=== PATIENT | female | born 1990 | race Caucasian/White ===

== ENCOUNTER 2017-09-25 22:16 | Inpatient (IN) | payer OTHER ==
[2017-09-25 22:44] VITALS: BMI 34.3
[2017-09-25] MEDS ORDERED: Misoprostol 200 MCG TAB PR PRN (23:15)
[2017-09-25] MEDS ORDERED: Methylergonovine 0.2 MG/ML VIAL IM PRN (23:15)
[2017-09-25] MEDS ORDERED: Ibuprofen 800 MG TAB PO PRN (23:15)
[2017-09-25] MEDS ORDERED: Lidocaine 1% (PF) 30 ML VIAL SC PRN (23:15)
[2017-09-25] MEDS ORDERED: Lactated Ringer's 1,000 ML IV SCH (23:15)
[2017-09-25] MEDS ORDERED: Diphenoxylate HCl/Atropine Tablet PO PRN ×2 (23:15)
[2017-09-25] MEDS ORDERED: HYDROcodone/Acetaminophen 5/325 mg Tablet PO PRN ×2 (23:15)
[2017-09-25] MEDS ORDERED: LR / Pitocin 40 units/1000 ml 1,000 ML IV PRN (23:15)
[2017-09-25] MEDS ORDERED: Acetaminophen 500 MG TAB PO PRN (23:15)
[2017-09-25] MEDS ORDERED: Promethazine HCl 25 MG/ML VIAL IM PRN (23:15)
[2017-09-25] MEDS ORDERED: Carboprost 250 MCG/ML AMP IM PRN (23:15)
[2017-09-25] MEDS ORDERED: Ondansetron HCl/PF 4 MG/2 ML Vial IVP PRN (23:15)
[2017-09-25] MEDS ORDERED: Lidocaine 1% (PF) 30 ML VIAL ONE (23:26)
[2017-09-25 23:32] LABS: Hematocrit 36.1 % (36.0-47.0); Mean Platelet Volume 9.5 fL (7.4-10.4); Red Blood Cell (RBC) Count 3.83 mill/uL (4.20-5.40); White Blood Cell (WBC) Count 12.4 thou/uL (4.8-10.8)
--- NOTE | 2017-09-26 01:59 | PDOC.LDHP ---
Labor and Delivery H&P Chief complaint: contractions, loss of fluid HPI: 27yo at 40w0d c/o painful ctx and LOF since 1430. Good FM, +vag spotting. Current gestational age (weeks): 40 Due date: 09/26/17 Dating criteria: last menstrual period Grav: 1 Para: 0 Current complications: none Abnormal US findings: No Current medications: pre-spring vitamins Previous surgical history: none Allergies/Adverse Reactions: Allergies Allergy/AdvReac Type Severity Reaction Status Date / Time No Known Allergies Allergy Verified 09/25/17 22:38 Social history: none - Physical Exam Vital signs reviewed and normal: yes General: breathing through contractions Heart: RRR Lungs: CTAB Abdomen: gravid Extremeties: no edema FHT: category 2, early decelerations, variable decelerations [place] contractions every: q3min - Vaginal Exam cm dilated: 9 Effacement: 100% Station: 0 (arom clear) - OB Labs Blood type: A RH: negative Antibody Screen: negative HIV: negative RPR: negative HEPSAg: negative 1 hour GCT: negative GBS: negative Rubella: immune - Assessment L&D Assessment: term patient in labor - Plan Plan: admit to L&D, labor augmentation if indicated, informed consent obtained, anesthesia consult for pain management
--- NOTE | 2017-09-26 02:01 | PDOC.OPDEL ---
OB Operative/Delivery Note Delivery Dr/Surgeon: Ross Assist: n/a Pre-Delivery Diagnosis: active labor Procedure/Post Delivery Dx: operative vaginal delivery (VE) Weeks gestation: 40 Anesthesia: local - Findings A Sex: male Weight: 8 lb 6 oz - 1 min: 8 - 5 min: 9 - Additional Findings/Plan Placenta delivered: spontaneous Repaired Obstetrical Laceration: 2nd degree (repaired with 2-0 vicryl in usual fashion, excellent hemostasis) Estimated blood loss: 400 Compilations/Other Findings: Pt pushed to C/C/+3, baby was having variables to 70s with contractions however upon baby did not recover with terminal bradycardia to 80s and minimal variability. Outlet VE performed with baby in JACLYN position, flexion point identified, vacuum placed 1cm anterior to posterior fontanelle. Successful VE with 4 pulls and total application time 2min. No popoffs. Cord gas sent. Post delivery plan: routine recovery
[2017-09-26] MEDS ORDERED: Milk Of Magnesia 30 ML UDCUP PO PRN (04:21)
[2017-09-26] MEDS ORDERED: Benzocaine/Menthol 20-0.5% 60 ML CAN TOP PRN (04:21)
[2017-09-26] MEDS ORDERED: Bisacodyl 10 MG SUPP PR PRN (04:21)
[2017-09-26] MEDS ORDERED: Preparation H Ointment 28 GM TUBE PR PRN (04:21)
[2017-09-26] MEDS ORDERED: Ondansetron HCl/PF 4 MG/2 ML Vial IVP PRN (04:21)
[2017-09-26] MEDS ORDERED: Lanolin Ointment 7 GM TUBE TOP PRN (04:21)
[2017-09-26] MEDS ORDERED: LR / Pitocin 40 units/1000 ml 1,000 ML IV SCH (04:21)
[2017-09-26] MEDS ORDERED: diphenhydrAMINE 25 MG CAP PO PRN (04:21)
[2017-09-26] MEDS ORDERED: HYDROcodone/Acetaminophen 5/325 mg Tablet PO PRN ×2 (04:21)
[2017-09-26] MEDS: Ibuprofen 800 MG TAB PO SCH ×3 (04:49→20:15)
[2017-09-26] MEDS: Prenatal Vitamin 1 TAB PO SCH (08:16)
[2017-09-26] MEDS: Docusate Calcium (SURFAK) 240 MG CAP PO SCH ×2 (08:16→20:16)
[2017-09-26] MEDS: Ferrous Sulfate 325 MG TAB PO SCH ×2 (08:18→17:00)
[2017-09-26] MEDS ORDERED: Adacel (T-DAP) 0.5 ML VIAL IM ONE (09:00)
[2017-09-27] MEDS: Ibuprofen 800 MG TAB PO SCH ×2 (06:18→14:09)
[2017-09-27] MEDS: Docusate Calcium (SURFAK) 240 MG CAP PO SCH (09:11)
[2017-09-27] MEDS: Ferrous Sulfate 325 MG TAB PO SCH (09:11)
[2017-09-27] MEDS: Prenatal Vitamin 1 TAB PO SCH (09:11)
[2017-09-27 10:21] VITALS: BP 126/78; TEMP 98.2
--- NOTE | 2017-09-27 12:54 | PDOC.PP ---
Post Progress Note Post Day #: 1 PO intake tolerated: yes Flatus: yes Ambulation: yes Vital Signs (12 hours) Temp Pulse Resp BP 09/27/17 08:40 98.2 F 69 18 126/78 09/27/17 05:00 98.4 F 66 18 104/61 09/27/17 04:00 98.8 F 80 18 Weight Weight 170 lb - Physical Examination General: NAD Cardiovascular: RRR Respiratory: non-labored breathing Abdominal: no distention, appropriately TTP Fundus firm & at: umb Extremities: negative homans (B) Skin: no rash Psychiatric: normal affect Result Diagrams: 09/25/17 23:20 Additional Labs: Post Labs Blood Type A NEGATIVE 09/25/17 23:00 Hep Bs Antigen Non-Reactive S/CO (NonReactive) 09/25/17 23:20 (1) Term delivered Code(s): O80 - ENCOUNTER FOR FULL-TERM UNCOMPLICATED DELIVERY Status: Acute - Assessment/Plan VSSAF Doing well no issues Rh neg s/p rhogam, RImvlad OR home FU 6wk
== END 2017-09-27 16:35 | disposition home or self-care (01) | DRG 775 ==
LOC: L&D/OP 22:16 → L&D 23:01 → 3SW 09-26 04:15
PROVIDERS: ADMIT Student in an Organized Health Care Education/Training Program; ATTEND Student in an Organized Health Care Education/Training Program
PROC: 10D07Z6 Extraction of Products of Conception, Vacuum, Via Natural or Artificial Opening (ICD-10-PCS; principal; 2017-09-26)
PROC: 3E0334Z Introduction of Serum, Toxoid and Vaccine into Peripheral Vein, Percutaneous Approach (ICD-10-PCS; 2017-09-26)
DX: O76 Abnormality in fetal heart rate and rhythm complicating labor and delivery (principal); O26.893 Other specified pregnancy related conditions, third trimester; O70.1 Second degree perineal laceration during delivery; Z67.11 Type A blood, Rh negative; Z37.0 Single live birth; Z3A.40 40 weeks gestation of pregnancy
CPT/HCPCS: 36415; 85027; 85461; 86780; 87340; 90384; 96372; J2001

== ENCOUNTER 2019-09-10 16:26 | Day surgery (SDC) | payer OTHER ==
[2019-09-10 17:01] VITALS: BMI 35.3
[2019-09-10] MEDS ORDERED: hydrALAZINE 20 MG/ML VIAL SLOW IVP PRN (17:36)
--- NOTE | 2019-09-10 17:38 | PDOC.LDHP ---
Labor and Delivery H&P Chief complaint: other (States High BP at home) HPI: Patient of Dr Hawkins I have seen her in triage A BPs here 123/67 and 115/53 (reports 150/90 at home) NST reactive I have Dictated H&P Current gestational age (weeks): 39 (4) Due date: 09/16/19 Grav: 2 Para: 1 Current complications: none Abnormal US findings: No Current medications: pre- vitamins Allergies/Adverse Reactions: Allergies Allergy/AdvReac Type Severity Reaction Status Date / Time No Known Allergies Allergy Verified 09/25/17 22:38 - Physical Exam Vital signs reviewed and normal: yes General: NAD, resting Abdomen: gravid FHT: category 1 - Assessment Reactive NST at 39 weeks 3 days; BP OBS - Plan Plan: observation in L&D (Labs ordered; NST reactive; CX pending...H&P DICTATED)
--- NOTE | 2019-09-10 17:49 | HP ---
LOCATION: Triage. TIME OF EVALUATION: 1729. The patient of Dr. Hawkins. CHIEF COMPLAINT: This is the patient with a chief complaint of "high blood pressure at home." HISTORY OF PRESENT ILLNESS: This is a 29-year-old, G2, P1, at 39 weeks and 3 days with an EDC of September 16, who arrives, who stated she took her blood pressure at home and her blood pressure is 150/90. She denies headache or nausea or visual changes. She denies vaginal bleeding. She denies contractions or leakage of fluid. She has good movement. She denies any complications. REVIEW OF SYSTEMS: Complete review of systems was checked and is otherwise negative unless specified in the HPI. PAST MEDICAL HISTORY: Negative. OB HISTORY: Noncontributory. She is G2, P1. NO CS HX ALLERGIES: NONE. PAST SURGICAL HISTORY: None. PHYSICAL EXAMINATION: VITAL SIGNS: Her blood pressure is 123/67 and repeated was 115/53. Clinically , she is in no acute distress. ABDOMEN: Soft and nontender. Pelvic exam is pending (nurse to perform now). On external monitor, heart tones are in the 130s to 140s with reactivity noted. The nonstress test meets reactive criteria. There is only one contraction over 20 minutes. ASSESSMENT: This is a G2, P1, at 39 weeks and 3 days with an EDC of September 16 with a blood pressure at home self-reported as elevated. Here, her blood pressures are normal. PLAN: 1. I will check a CMP and a CBC. 2. Serial blood pressures for now. 3. If her labs are normal and blood pressures remain normal over the next 1 to 2 hours, I will release her home and have her follow up with Dr. Hawkins tomorrow morning. 4. NST ADDENDUM: Cervix is 2/50/-1 per RN exam and YOHANA Job ID: [id number] [facility]
[2019-09-10 18:43] LABS: #Basophils 0.1 thou/uL (0.0-0.2); #Eosinphils 0.1 thou/uL (0.0-0.7); #Lymphocytes 1.8 thou/uL (1.20-3.40); #Monocytes 0.8 thou/uL (0.11-0.59); %Basophils 1.2 % (0.0-1.0); %Eosinophils 1.2 % (0.0-10.0); %Lymphocytes 22.6 % (21.0-51.0); %Monocytes 10.2 % (0.0-10.0); %Neutrophils 64.8 % (42.0-75.0); Hemoglobin 12.3 g/dL (12.0-16.0); Mean Corpuscular HGB CONC 34.5 g/dL (32.0-36.0); Mean Corpuscular Hemoglobin 31.6 pg (27.0-31.0); Mean Corpuscular Volume 91.4 fL (78.0-98.0); Mean Platelet Volume 8.4 fL (7.4-10.4); Platelet Count 197 thou/uL (130-400); RBC Distribution Width 11.7 % (11.5-14.5); White Blood Cell (WBC) Count 7.8 thou/uL (4.8-10.8)
[2019-09-10 19:12] LABS: ALT (SGPT) 25 U/L (8-55); AST (SGOT) 24 U/L (5-34); Albumin 3.4 g/dL (3.5-5.0); Alkaline Phosphatase 192 U/L (40-110); Anion Gap 13 mmol/L (10-20); BUN (Urea Nitrogen) 6 mg/dL (7.0-18.7); Bilirubin, Total 0.2 mg/dL (0.2-1.2); Calc. Creatinine Clearance 157 mL/min (70-130); Calcium 8.9 mg/dL (7.8-10.44); Carbon Dioxide 23 mmol/L (22-29); Chloride 103 mmol/L (98-107); Estimated GFR-MDRD Greater than 90; Globulin 3.1 g/dL (2.4-3.5); Glucose 75 mg/dL (70-105); Potassium 3.3 mmol/L (3.5-5.1); Protein, Total 6.5 g/dL (6.0-8.3); Sodium 136 mmol/L (136-145)
--- NOTE | 2019-09-10 19:23 | PDOC.EVN ---
Event Note - Event Note Event Note: Lab check: Labs ok We will recheck BP now and if normal ok to check in AM
== END 2019-09-10 19:30 | disposition home or self-care (01) ==
LOC: L&D/OP 16:26
PROVIDERS: ATTEND Student in an Organized Health Care Education/Training Program
DX: O99.89 Other specified diseases and conditions complicating pregnancy, childbirth and the puerperium (principal); R03.0 Elevated blood-pressure reading, without diagnosis of hypertension; Z3A.39 39 weeks gestation of pregnancy
CPT/HCPCS: 36415; 80053; 85025; 99283

== ENCOUNTER 2019-09-19 04:10 | Inpatient (IN) | payer OTHER ==
[2019-09-19 04:43] VITALS: BMI 35.5
[2019-09-19] MEDS ORDERED: Lidocaine 1% (PF) 30 ML VIAL SC PRN (04:53)
[2019-09-19] MEDS ORDERED: HYDROcodone/Acetaminophen 5/325 mg Tablet PO PRN ×4 (04:53→08:45)
[2019-09-19] MEDS ORDERED: Ibuprofen 800 MG TAB PO PRN (04:53)
[2019-09-19] MEDS ORDERED: Ondansetron PF 4 MG/2 ML Vial IVP PRN ×2 (04:53→08:45)
[2019-09-19] MEDS ORDERED: NS / Oxytocin 40 units/1000ml 1,000 ML IV PRN (04:53)
[2019-09-19] MEDS ORDERED: hydrALAZINE 20 MG/ML VIAL SLOW IVP PRN ×2 (04:53→08:45)
[2019-09-19] MEDS ORDERED: Butorphanol Tartrate 1 MG/ML VIAL SLOW IVP PRN (04:53)
[2019-09-19] MEDS ORDERED: Lactated Ringer's 1,000 ML IV SCH ×2 (05:00)
[2019-09-19 05:57] LABS: Hemoglobin 12.7 g/dL (12.0-16.0); Mean Corpuscular Volume 92.1 fL (78.0-98.0)
[2019-09-19 06:10] LABS: Mean Corpuscular HGB CONC 34.4 g/dL (32.0-36.0); Mean Corpuscular Hemoglobin 31.7 pg (27.0-31.0); Mean Platelet Volume 8.6 fL (7.4-10.4); Platelet Count 186 thou/uL (130-400); Red Blood Cell (RBC) Count 4.02 mill/uL (4.20-5.40); White Blood Cell (WBC) Count 9.8 thou/uL (4.8-10.8)
[2019-09-19 06:43] LABS: HBSAg Index 0.16 S/CO (0-0.99); Hep B Surf Ag Non-Reactive S/CO (NonReactive); Syphilis Antibody Nonreactive (Nonreactive); Syphilis Antibody Index 0.11 S/CO (<1.00 Non-Reactive)
--- NOTE | 2019-09-19 08:17 | PDOC.LDHP ---
Labor and Delivery H&P Chief complaint: contractions HPI: 29yo at 40w3d by LMP here with painful ctx since 0100 Current gestational age (weeks): 40 Due date: 09/16/19 Dating criteria: last menstrual period Grav: 2 Para: 1 Current complications: none Abnormal US findings: No Past Medical History: denies Current medications: pre-spring vitamins Previous surgical history: other Allergies/Adverse Reactions: Allergies Allergy/AdvReac Type Severity Reaction Status Date / Time No Known Allergies Allergy Verified 09/25/17 22:38 Social history: none - Physical Exam Vital signs reviewed and normal: yes General: breathing through contractions Heart: RRR Lungs: CTAB Abdomen: gravid Extremeties: no edema FHT: category 1 [place] contractions every: 3min - Vaginal Exam cm dilated: 10 Effacement: 100% Station: 3+ - OB Labs Blood type: A RH: negative Antibody Screen: negative HIV: negative RPR: negative HEPSAg: negative 1 hour GCT: negative GBS: negative Urine drug screen: negative Rubella: non-immune - Assessment L&D Assessment: term patient in labor - Plan Plan: admit to L&D, labor augmentation if indicated, informed consent obtained
--- NOTE | 2019-09-19 08:19 | PDOC.OPDEL ---
OB Operative/Delivery Note Delivery Dr/Surgeon: Ross Assist: n/a Pre-Delivery Diagnosis: active labor Procedure/Post Delivery Dx: spontaneous vaginal delivery Weeks gestation: 40 Anesthesia: local - Findings A Sex: male - 1 min: 8 - 5 min: 9 - Additional Findings/Plan Placenta delivered: spontaneous Repaired Obstetrical Laceration: 2nd degree (repaired with 2-0 vicryl) Estimated blood loss: 450 Post delivery plan: routine recovery
[2019-09-19] MEDS ORDERED: Lanolin Ointment 7 GM TUBE TOP PRN (08:45)
[2019-09-19] MEDS ORDERED: Measles/Mumps/Rubella 10 MCG/0.5 ML VIAL SC ONE (08:45)
[2019-09-19] MEDS ORDERED: diphenhydrAMINE 25 MG CAP PO PRN (08:45)
[2019-09-19] MEDS ORDERED: Preparation H Ointment 28 GM TUBE PR PRN (08:45)
[2019-09-19] MEDS ORDERED: Promethazine HCl 25 MG/ML VIAL IM PRN (08:45)
[2019-09-19] MEDS ORDERED: Bisacodyl 10 MG SUPP PR PRN (08:45)
[2019-09-19] MEDS ORDERED: NS / Oxytocin 40 units/1000ml 1,000 ML IV SCH (08:45)
[2019-09-19] MEDS ORDERED: Adacel (T-DAP) 0.5 ML SYRINGE IM ONE (08:45)
[2019-09-19] MEDS ORDERED: Milk Of Magnesia 30 ML UDCUP PO PRN (08:45)
[2019-09-19] MEDS: Docusate Calcium (SURFAK) 240 MG CAP PO SCH ×2 (13:07→21:30)
[2019-09-19] MEDS: Prenatal Vitamin 1 TAB PO SCH (13:07)
[2019-09-19] MEDS: Ibuprofen 800 MG TAB PO SCH ×2 (14:50→21:30)
[2019-09-19] MEDS: Ferrous Sulfate 325 MG TAB PO SCH (15:58)
[2019-09-19] MEDS ORDERED: Benzocaine-Menthol 82.5 ML CAN TOP PRN (22:09)
[2019-09-20] MEDS: Ibuprofen 800 MG TAB PO SCH (06:32)
--- NOTE | 2019-09-20 08:21 | PDOC.PP ---
Post Progress Note Post Day #: 1 Subjective: Pt is doing well. Minimal lochia. Pain well controlled. Pt is breast feeding without any concerns and good latch. She is urinating normally and eating and drinking well. Pt passing gas. No CP, SOB or leg swelling. PO intake tolerated: yes Flatus: yes Ambulation: yes Vital Signs (12 hours) Temp Pulse Resp BP Pulse Ox 09/20/19 08:09 98.3 F 82 20 115/61 98 09/20/19 03:45 98.3 F 80 18 111/57 L 09/20/19 00:43 98.2 F 87 18 121/66 Weight Weight 176 lb - Physical Examination General: NAD Respiratory: non-labored breathing Abdominal: + bowel sounds, lochia, no distention, appropriately TTP Fundus firm & at: 1 cm below umbilicus Extremities: negative homans (B) Skin: no rash Neurological: no gross focal deficits Psychiatric: A&Ox3, normal affect Result Diagrams: 09/19/19 05:39 Additional Labs: Post Labs Blood Type A NEGATIVE 09/19/19 05:39 Hep Bs Antigen Non-Reactive S/CO (NonReactive) 09/19/19 05:39 (1) Term delivered Code(s): O80 - ENCOUNTER FOR FULL-TERM UNCOMPLICATED DELIVERY Status: Acute - Assessment/Plan PT doing well PPD1. Continue routine care. Baby is breast feeding well. Patient would like to go home later this evening. Will plan to d/ c when baby is discharged. She will follow up with our office in 6 weeks.
[2019-09-20] MEDS: Prenatal Vitamin 1 TAB PO SCH (10:16)
[2019-09-20] MEDS: Docusate Calcium (SURFAK) 240 MG CAP PO SCH (10:17)
[2019-09-20] MEDS: Ferrous Sulfate 325 MG TAB PO SCH (10:17)
[2019-09-20 11:39] VITALS: BP 124/70; TEMP 98
== END 2019-09-20 12:15 | disposition home or self-care (01) | DRG 807 ==
LOC: L&D/OP 04:10 → L&D 08:17 → 3SW 11:10
PROVIDERS: ADMIT Student in an Organized Health Care Education/Training Program; ATTEND Student in an Organized Health Care Education/Training Program
PROC: 10E0XZZ Delivery of Products of Conception, External Approach (ICD-10-PCS; principal; 2019-09-19)
PROC: 0KQM0ZZ Repair Perineum Muscle, Open Approach (ICD-10-PCS; 2019-09-19)
DX: O48.0 Post-term pregnancy (principal); Z37.0 Single live birth; Z3A.40 40 weeks gestation of pregnancy; O70.1 Second degree perineal laceration during delivery
CPT/HCPCS: 36415; 85027; 85460; 85461; 86780; 86850; 86900; 86901; 87340; 90384; 96372; J2001